=== PATIENT | female | born 1985 | race Caucasian/White ===

== ENCOUNTER 2019-05-23 11:37 | Emergency (ER) | payer BC, OTHER ==
[~2019-05-23] VITALS: Ht 167.6 cm; Wt 62.6 kg
[2019-05-23 12:07] LABS: ABSOLUTE NEUTROPHILS 4.4 thou/uL (1.4-8.2); BASOPHILS 1.1 % (0.0-2.0); EOSINOPHILS 1.2 % (0.0-3.0); HEMATOCRIT 43.2 % (37.0-47.0); HEMOGLOBIN 14.5 gm/dL (12.0-15.0); LYMPHOCYTES 22.9 % (24.0-44.0); MCHC 33.6 g/dL (28.0-37.0); MCV 89.4 fL (80.0-100.0); MONOCYTES 9.2 % (1.0-8.0); PLATELET COUNT 241 thou/uL (150-400); POLYS 65.6 % (36.0-66.0); RBC 4.83 mil/uL (4.20-5.00); RDW 12.5 % (10.5-14.5); WBC 6.7 thou/uL (4.0-11.0)
[2019-05-23 12:17] LABS: CALCIUM 9.1 mg/dL (8.5-10.1); CREATININE 0.7 mg/dL (0.6-1.0); POTASSIUM 3.9 mmol/L (3.5-5.1)
[2019-05-23 12:22] LABS: ALBUMIN 3.6 g/dL (3.4-5.0); TOTAL BILIRUBIN 0.8 mg/dL (<0.1-1.0); TOTAL PROTEIN 7.7 g/dL (6.4-8.2)
[2019-05-23] MEDS ORDERED: ZOFRAN ODT4 MG PO (14:10)
[2019-05-23 14:19] VITALS: BP 115/73
--- NOTE | 2019-05-28 17:26 | EKG ---
[address] [address] ELECTROCARDIOGRAM REPORT Name: TALEWISMILO SANDIP Room #: [facility]P [facility]ENTER[facility]za[facility]#: [id number] Admission: 05/23/19 Attend Phys: Discharge: 05/23/19 Date of : 83 Report #: [id number] THIS REPORT FOR: //name// [facility] ED Test Date: 2019-05-23 Test Time: 12:06:43 Pat Name: MILO CHAPPELL Department: Room: Gender: F [employer]: [place] : 1985 Requested By: Shantel Peraza Order Number: [id number] MD: John Dias Measurements Intervals [place] Rate: 71 P: 13 MO: 147 QRS: 44 QRSD: 86 T: 20 QT: 384 QTc: 418 Interpretive Statements Sinus rhythm No previous ECG available for comparison Electronically Signed On 05-28-2019 17:25:55 [employer] by John Dias [email or web address] <ELECTRONICALLY SIGNED> By: John Dias MD, [facility] 05/28/19 1725 1206 1206 John Dias MD, FACC /EPI
== END 2019-05-23 14:28 | disposition home or self-care (01) ==
LOC: ER
PROVIDERS: Physician Assistant
DX: R00.2 Palpitations (principal); E05.90 Thyrotoxicosis, unspecified without thyrotoxic crisis or storm; R42 Dizziness and giddiness

== ENCOUNTER → 2019-08-03 | Outpatient (CLI) | payer BC, OTHER ==
[~2019-08-03] MED LIST: ZOFRAN ODT4 MG PO
== END ==
LOC: NUC 07:12
DX: E05.90 Thyrotoxicosis, unspecified without thyrotoxic crisis or storm (principal); Z88.2 Allergy status to sulfonamides

== ENCOUNTER → 2020-06-07 | Outpatient (CLI) | payer BC, OTHER | LOC: LAB 13:21 | PROVIDERS: ATTEND Nurse Practitioner | DX: Z20.828 Contact with and (suspected) exposure to other viral communicable diseases (principal) ==